=== PATIENT | female | born 1995 | race Two or more races ===

== ENCOUNTER 2018-08-16 02:41 | Emergency (ER) | payer MEDICAID, OTHER ==
[~2018-08-16] VITALS: Ht 157.5 cm; Wt 60.8 kg
--- NOTE | 2018-08-16 02:55 | NUR ---
URINE SAMPLE OBTAINED. PT AMBULATED TO ER #4 GUARDING HER LEFT FLANK/RIBS. DR. MARTINEZ IS AT THE BEDSIDE EVALUATING THE PT. CALLED [employer] TO REPORT THE INCIDENT. INCIDENT NUMBER: [id number] AND I SPOKE TO CONTESTANT COORDINATOR NUBMER:[id number]
[2018-08-16] MEDS ORDERED: IV NS 0.9% 1,000 ML BAG IV ONE (03:00)
--- NOTE | 2018-08-16 03:02 | NUR ---
[facility] [employer] ARRIVED AND ARE AT THE BEDSIDE SPEAKING TO THE PT.
[2018-08-16] MEDS ORDERED: CT SWABBABLE VALVE TRANS SET 1 EA INFUS.SET MC ONE (03:06)
[2018-08-16] MEDS ORDERED: IOHEXOL-300 100 ML VIAL IV ONE (03:06)
--- NOTE | 2018-08-16 03:06 | NUR ---
PT LEFT FOR CT VIA GURNEY.
[2018-08-16] MEDS ORDERED: IV NS 0.9% 250 ML IV ONE (03:07)
[2018-08-16 03:18] LABS: BASOPHILS # (AUTO) 0.1 /CMM (0.0-0.2); BASOPHILS % (AUTO) 0.7 % (0.0-2.0); EOSINOPHILS % (AUTO) 2.2 % (0.0-6.0); HEMATOCRIT 45 % (33-45); HEMOGLOBIN 15.1 g/dL (11.5-14.8); LYMPHOCYTES # (AUTO) 2.8 /CMM (0.8-4.8); LYMPHOCYTES % (AUTO) 38.7 % (20.0-44.0); MEAN CORPUSCULAR HGB CONC 34 g/dl (31.0-36.0); MEAN CORPUSCULAR VOLUME 87 fL (82-100); MONOCYTES # (AUTO) 0.5 /CMM (0.1-1.30); MONOCYTES % (AUTO) 6.2 % (2.0-12.0); NEUTROPHILS # (AUTO) 3.8 /CMM (1.8-8.9); NEUTROPHILS % (AUTO) 52.2 % (43.0-81.0); PLATELET COUNT (AUTO) 223 /CMM (150-450); RED BLOOD CELL COUNT(AUTO) 5.12 MIL/uL (4.0-5.2); WHITE BLOOD COUNT (AUTO) 7.3 K/uL (4.3-11.0)
[2018-08-16 03:26] LABS: CALCIUM, SERUM 8.9 mg/dL (8.5-10.1); CREATININE 0.9 mg/dL (0.6-1.3); POTASSIUM 3.4 mmol/L (3.5-5.1)
--- NOTE | 2018-08-16 03:31 | NUR ---
PT RETURNED FROM CT.
--- NOTE | 2018-08-16 03:32 | NUR ---
CALLED [facility] RE: CT READ BEING STAT READ.
--- NOTE | 2018-08-16 04:30 | NUR ---
IV removed. Catheter intact and site benign. Pressure and 4x4 applied to site. No bleeding noted. Patient discharged to home in stable condition. Written and verbal after care instructions given. Patient verbalizes understanding of instruction. PT REC'D A REFERRAL TO MARTITA MARTE, [employer] COORDINATOR. PT AMBULATED OUT WITH A STEADY GAIT. PT'S BOYFRIEND IS TAKING PT HOME. VSS
[2018-08-16 04:44] VITALS: BP 141/87
--- NOTE | 2018-08-16 05:05 | NUR ---
called in for pelvic ultrasound at 04:35 which was cancelled by the time I arrived at 05:00
== END 2018-08-16 04:30 | disposition home or self-care (01) ==
LOC: ER 02:45
DX: S20.212A Contusion of left front wall of thorax, initial encounter (principal); R19.00 Intra-abdominal and pelvic swelling, mass and lump, unspecified site; Y04.0XXA Assault by unarmed brawl or fight, initial encounter; Y93.89 Activity, other specified; Y92.89 Other specified places as the place of occurrence of the external cause; Y99.8 Other external cause status
CPT/HCPCS: 36415; 71260; 74177; 80048; 84703; 85025; 85730; 99284; J7030; J7050; Q9967

== ENCOUNTER 2018-08-16 15:10 | Emergency (ER) | payer MEDICAID ==
[~2018-08-16] VITALS: Ht 154.9 cm; Wt 67.6 kg
[2018-08-16 15:45] VITALS: BP 122/85
--- NOTE | 2018-08-16 17:06 | NUR ---
Patient discharged to home in stable condition. Written and verbal after care instructions given. Patient verbalizes understanding of instruction. informed to follow up with OBGYN and amenable.
== END 2018-08-16 17:05 | disposition home or self-care (01) ==
LOC: ER 15:10
DX: N83.201 Unspecified ovarian cyst, right side (principal)
CPT/HCPCS: 76856-TC